=== PATIENT | female | born 1975 | race Caucasian/White ===

== ENCOUNTER 2016-10-16 18:17 | Emergency (ER) | payer MEDICAID ==
[~2016-10-16] VITALS: Ht 152.4 cm; Wt 70.3 kg
[~2016-10-16 18:17] MED LIST: NORGESTIMATE AN1 TA1 PO
[2016-10-16 20:11] VITALS: BP 129/86
--- NOTE | 2016-10-16 21:35 | NUR ---
PT TAKEN TO BED 5
--- NOTE | 2016-10-16 22:05 | NUR ---
41/F female presents to ED for evaluation of RUQ pain x 1 day. Pt c/o sharp, pain radiating to right flank, 10/10, constant. Pt states she took some Tylenol at home prior to arrival around 1500 with no improvement. Patient also c/o severe nausea, denies vomiting. Pt is also 17 weeks . G-2 P-1. Denies vaginal bleeding. Denies vaginal discharge. Pt also reports she was dx with UTI 2 weeks ago and was given antibiotics which she is still taking. Pt c/o burning with urination as well. Pt is crying, and very restless. Pt placed into a position of comfort and lying on left side. at bedside. VSS.
--- NOTE | 2016-10-16 22:25 | NUR ---
Pt taken to US via w/c.
--- NOTE | 2016-10-16 22:40 | NUR ---
Patient returned from US.
[2016-10-16] MEDS ORDERED: ONDANSETRON 4 MG/2 ML VIAL IVP ONE (22:50)
[2016-10-16] MEDS ORDERED: MORPHINE SULFATE 4 MG/ML SYR IVP ONE (22:50)
--- NOTE | 2016-10-17 00:23 | NUR ---
Patient appears to be resting comfortably in bed. Vital Signs within normal limits. Respirations even and unlabored.
--- NOTE | 2016-10-17 02:32 | NUR ---
IV removed, catheter intact and site benign. Applied folded 4x4 gauze and tape to stop bleeding.
--- NOTE | 2016-10-17 02:58 | NUR ---
ERMD AWARE PT IS 17 WEEKS .
[2016-10-17 03:00] VITALS: BP 100/65
--- NOTE | 2016-10-17 03:00 | NUR ---
Patient discharged with v/s stable. Written and verbal after care instructions given and explained. Patient alert, oriented and verbalized understanding of instructions. Ambulatory with steady gait. All questions addressed prior to discharge. ID band removed. Patient advised to follow up with PMD. Rx of ACETAMINOPHEN/CODEINE PHOSPHATE 300MG-30MG TABLET 2 TABS ORALLY EVERY 6 HOURS NEEDED FOR PAIN given. Patient educated on indication of medication including possible reaction and side effects. Opportunity to ask questions provided and answered.
== END 2016-10-17 03:00 | disposition home or self-care (01) ==
LOC: MED 18:17
DX: O26.892 Other specified pregnancy related conditions, second trimester (principal); R10.11 Right upper quadrant pain
CPT/HCPCS: 36415; 76705; 76805; 80053; 81001; 81025; 83690; 85025; 96374; 96375; 99285; J2270; J2405